=== PATIENT | female | born 1975 | race Caucasian/White ===

== ENCOUNTER 2017-05-25 19:31 | Emergency (ER) | payer OTHER ==
[~2017-05-25] VITALS: Ht 162.6 cm; Wt 57.6 kg
[~2017-05-25 19:31] MED LIST: ACETAMINOPHEN-1 EAC1 PO; AEROECLIPSE II1 EACH MC; ALLEGRA ALLERG180 MG PO; AMBIEN 5 MG TABL5 M1; AUGMENTIN 875875 MG PO; BIOTIN2500 MCG PO; CARISOPRODOL 3350 MG PO; CELEXA20 MG; CIPRO250 M1 PO; CIPRO500 MG PO; CLONAZEPAM; CLONAZEPAM 1 MG1 M1 PO; COLACE100 MG PO; CRANBERRY PLUS1 EAC1 PO; DUONEB 2.5-0.5 M3 ML INH; EFFEXOR 5050 MG/1 T1 PO; EFFEXOR XR150 MG; EFFEXOR XR150 MG PO; EFFEXOR75 MG PO; FISH OIL + VIT1 EACH; FLAGYL500 M1 PO; FLEXERIL PO; GABAPENTIN 100100 MG PO; HOME MEDICATION PO; HYDROCODONE-AP1 EAC6 PO; IBUPROFEN 800800 M1 PO; KLONOPIN PO; LEVSIN0.125 MG PO; LIDODERM 5%1 PATC1 TOP; LORTAB 7.5/5001 TA1 PO; MACROBID 100 M100 M1 PO; MEDROL DOSPAK21 TAB PO; MEDROLDOSEPACK PO; NABUMETONE 750750 M1 PO; NAPROSYN500 MG PO; NEURONTIN 300300 M1 PO; NICOTINE TRANSD14 M1 TRANSDERM; NORCO 5-325 TA1 EACH PO; ONDANSETRON ODT4 MG SUBLING; PERCOCET 10-321 EACH PO; PERCOCET 5-3251 EACH PO; PERCOCET 7.5-31 EACH PO; PERCOCET PO; PHENAZOPYRIDIN200 M2 PO; PROBIOTIC1 EAC1 PO; PROTONIX40 M1 PO; PYRIDIUM200 MG PO; ROBAXIN 750 MG750 M1 PO; ROBAXIN500 MG PO; SENOKOT-S1 TA1 PO; SEROPHENE50 MG; SEROQUEL 25 MG25 M1; SEROQUEL 50 MG50 MG PO; SUPER B COMPLEX; SYMBICORT160 MCG/4.; SYMBICORT160 MCG/4. INH; ULTRAM 50MG TAB50 MG PO; VENTOLIN HFA 1818 GM; VENTOLIN HFA 1818 GM INH; ZOFRAN ODT4 MG SUBLING; ZOLOFT100 MG; ZPAK PO
[2017-05-25] MEDS ORDERED: NEURONTIN 300300 M1 PO (19:38)
[2017-05-25] MEDS ORDERED: EFFEXOR XR75 MG (19:38)
[2017-05-25 20:45] VITALS: BP 118/72
== END 2017-05-25 20:45 | disposition home or self-care (01) ==
LOC: M.ERS 19:31
DX: S06.0X9A Concussion with loss of consciousness of unspecified duration, initial encounter (principal); J45.909 Unspecified asthma, uncomplicated; F41.9 Anxiety disorder, unspecified; M86.9 Osteomyelitis, unspecified; Z90.49 Acquired absence of other specified parts of digestive tract; Z98.890 Other specified postprocedural states; Z88.2 Allergy status to sulfonamides; Z91.040 Latex allergy status; Z88.0 Allergy status to penicillin; Z88.8 Allergy status to other drugs, medicaments and biological substances; W01.0XXA Fall on same level from slipping, tripping and stumbling without subsequent striking against object, initial encounter; Y93.89 Activity, other specified; Y92.89 Other specified places as the place of occurrence of the external cause; Y99.8 Other external cause status

== ENCOUNTER 2017-07-29 23:18 | Inpatient (IN) | payer OTHER ==
[~2017-07-29] VITALS: Ht 162.6 cm; Wt 60.7 kg
--- NOTE | ~2017-07-29 | H ---
[address] [address] HISTORY AND PHYSICAL Name: MENG COLEMAN Room: [address]#: [id number] Admission: 07/30/17 Attend Phys: Ashley Uriostegui Discharge: 07/30/17 Date of : 79 Report #: [id number] THIS REPORT FOR: //name// Patient was here less than 24 hour please refer to the final summation note. Patient left Against Medical Advice. By: 1428Medical Records Staff CAITY /JESUS
[~2017-07-29 23:18] MED LIST changes: +EFFEXOR XR75 MG
[2017-07-29 23:19] VITALS: BP 109/64
[2017-07-29 23:47] LABS: URINE BILIRUBIN NEGATIVE (Negative); URINE BLOOD 2+ (Negative); URINE CLARITY CLEAR; URINE COLOR YELLOW; URINE GLUCOSE-RANDOM NEGATIVE (Negative); URINE KETONES NEGATIVE (Negative); URINE LEUKOCYTES-REFLEX 1+ (Negative); URINE NITRITE-REFLEX NEGATIVE (Negative); URINE PROTEIN NEGATIVE (Negative); URINE UROBILINOGEN 0.2 E.U./dl (0.2-1.0)
[2017-07-30 00:09] LABS: BE 4.1 mmol/L (-2 to +3); HCO3 28.3 mmol/L (22.0-26.0); PCO2 41.1 mmHg (35.0-45.0); PO2 186.4 mmHg (75.0-100.0); pH 7.456 (7.340-7.450)
[2017-07-30 00:11] LABS: ABSOLUTE EOSINOPHILS 0.2 thou/uL (0.0-0.7); ABSOLUTE LYMPHOCYTES 1.4 thou/uL (0.8-5.3); ABSOLUTE MONOCYTES 0.4 thou/uL (0.0-1.2); ABSOLUTE NEUTROPHILS 1.9 thou/uL (1.6-8.1); HEMATOCRIT 32.5 % (37.0-47.0); LYMPHOCYTES 36.8 %; MCH 34.6 pg (26.0-34.0); MONOCYTES 9.8 %; NUCLEATED RBCS 0 /100WBC; PLATELET COUNT* 193 thou/uL (150-400); POLYS 48.4 %; RBC 3.18 mil/uL (4.20-5.00); WBC 3.9 thou/uL (4.0-11.0)
[2017-07-30 00:14] LABS: ANION GAP 5 mmol/L (7-16); BUN 8 mg/dL (7-18); CALCIUM 8.5 mg/dL (8.5-10.1); CHLORIDE 106 mmol/L (98-107); CO2 31 mmol/L (21-32); CREATININE 0.9 mg/dL (0.6-1.3); GLUCOSE 127 mg/dL (70-99); POTASSIUM 3.3 mmol/L (3.5-5.1); SODIUM 142 mmol/L (136-145)
[2017-07-30 00:15] LABS: PROTIME 10.1 Seconds (9.20-11.50)
[2017-07-30 00:18] LABS: ACETAMINOPHEN < 2 ug/mL (10-30); SALICYLATE < 2.8 mg/dL (2.8-20.0)
[2017-07-30 00:19] LABS: ALCOHOL < 10 mg/dL (<10)
[2017-07-30 00:20] LABS: ALBUMIN 2.9 g/dL (3.4-5.0); ALKALINE PHOSPHATASE 91 U/L (46-116); SGOT 46 U/L (15-37); SGPT 172 U/L (30-65); TOTAL BILIRUBIN 0.3 mg/dL (<0.1-1.0); TROPONIN-I LEVEL <0.06 ng/mL (<0.06)
[2017-07-30 00:27] LABS: CASTS None Seen /LPF (None Seen); SQUAMOUS >10 Many /LPF (0-3)
[2017-07-30 00:28] LABS: URINE WBC-REFLEX 0-5 Rare /HPF (0-5)
[2017-07-30 00:29] LABS: AMP/METHAMP Negative (Negative); BARBITURATES Negative (Negative); BENZODIAZEPINES POSITIVE (Negative); COCAINE Negative (Negative); CRYSTALS None Seen /LPF (None Seen); METHADONE Negative (Negative); OPIATES POSITIVE (Negative); PCP Negative (Negative); THC Negative (Negative); URINE RBC 0-2 Rare /HPF (0-2)
[2017-07-30 01:20] VITALS: BP 123/84
[2017-07-30 02:00] VITALS: BP 107/65
[2017-07-30 04:00] VITALS: BP 113/70; BP 115/69
--- NOTE | 2017-07-30 09:16 | EKG ---
[place] [address] ELECTROCARDIOGRAM REPORT Name: MENG COLEMAN Room: [address] IN [facility]#: [id number] Admission: 07/30/17 Attend Phys: Ashley Uriostegui Discharge: 07/30/17 Date of : 79 Report #: [id number] THIS REPORT FOR: //name// [facility] ED Test Date: 2017-07-29 Test Time: 23:28:55 Pat Name: MENG COLEMAN Department: Room: Gender: Quality Assurance Supervisor Body: SANTO : 1975 Requested By: Nara Lira Order Number: [id number] MD: Abhijeet Acosta Measurements Intervals [place] Rate: 114 P: 77 MS: 138 QRS: 19 QRSD: 98 T: 17 QT: 363 QTc: 501 Interpretive Statements Sinus tachycardia Borderline prolonged QT interval Compared to ECG 01/21/2017 15:25:37 Sinus rhythm no longer present Electronically Signed On 07-30-2017 9:16:07 CDT by Abhijeet Acosta [email or web address] <ELECTRONICALLY SIGNED> By: Abhijeet Acosta MD, [facility] 07/30/17 0916 [id number] Abhijeet Acosta MD, [facility] /EPI
--- NOTE | 2017-07-30 09:17 | EKG ---
[place] [address] ELECTROCARDIOGRAM REPORT Name: VIRGINIAMENG ALVA Room: [address] IN [facility]#: [id number] Admission: 07/30/17 Attend Phys: Ashley Uriostegui Discharge: 07/30/17 Date of : 79 Report #: [id number] THIS REPORT FOR: //name// [facility] ED Test Date: 2017-07-30 Test Time: 01:04:12 Pat Name: MENG COLEMAN Department: Room: Gender: Door To Door Salesman: SANTO : 1975 Requested By: Nara Lira Order Number: [id number] MD: Abhijeet Acosta Measurements Intervals [place] Rate: 105 P: 38 CA: 127 QRS: 12 QRSD: 99 T: 25 QT: 369 QTc: 488 Interpretive Statements Sinus tachycardia Abnormal inferior Q waves Compared to ECG 01/21/2017 15:25:37 Inferior Q waves now present Sinus rhythm no longer present Electronically Signed On 07-30-2017 9:16:52 CDT by Abhijeet Acosta [email or web address] <ELECTRONICALLY SIGNED> By: Abhijeet Acosta MD, FACC 07/30/17 [id number] [id number] Abhijeet Acosta MD, [facility] /EPI
== END 2017-07-30 07:00 | disposition left against medical advice (07) | DRG 917 ==
LOC: M.ERS 23:18 → M.ICU 07-30 01:02 → M.TBA-ER 07-30 01:02 → M.ICU 07-30 01:28
PROVIDERS: Emergency Medicine; ADMIT Internal Medicine
DX: T43.591A Poisoning by other antipsychotics and neuroleptics, accidental (unintentional), initial encounter (principal); G92 Toxic encephalopathy; T43.011A Poisoning by tricyclic antidepressants, accidental (unintentional), initial encounter; F41.9 Anxiety disorder, unspecified; J45.909 Unspecified asthma, uncomplicated; Z90.49 Acquired absence of other specified parts of digestive tract; Z91.040 Latex allergy status; Z88.0 Allergy status to penicillin; Z88.2 Allergy status to sulfonamides; Z91.048 Other nonmedicinal substance allergy status; Y92.018 Other place in single-family (private) house as the place of occurrence of the external cause

== ENCOUNTER 2017-08-04 22:01 | Emergency (ER) | payer OTHER ==
[~2017-08-04] VITALS: Ht 162.6 cm; Wt 58.5 kg
[2017-08-04] MEDS ORDERED: MACROBID (22:16)
[2017-08-04] MEDS ORDERED: PYRIDIUM (22:16)
[2017-08-04 22:20] LABS: URINE CLARITY CLEAR; URINE COLOR ORANGE
[2017-08-04 22:25] LABS: SSA (PROTEIN CONFIRMATORY) NEGATIVE (Negative); URINE PROTEIN ND (Negative); URINE SPECIFIC GRAVITY ND (1.005-1.030)
[2017-08-04 22:26] LABS: ACETEST (KETONE CONFIRMATORY) Negative (Negative); ICTOTEST (BILI CONFIRMATORY) Negative (Negative); URINE BILIRUBIN ND (Negative); URINE GLUCOSE-RANDOM ND (Negative); URINE KETONES NC (Negative); URINE REDUCING SUBSTANCE NEGATIVE (Negative)
[2017-08-04 22:27] LABS: URINE BLOOD ND (Negative); URINE LEUKOCYTES-REFLEX ND (Negative); URINE NITRITE-REFLEX ND (Negative); URINE UROBILINOGEN ND E.U./dl (0.2-1.0)
[2017-08-04 22:30] LABS: BACTERIA-REFLEX >30 Many /HPF (None Seen); CASTS None Seen /LPF (None Seen); CRYSTALS None Seen /LPF (None Seen); MUCUS 4-6 Moderate strn/LPF (None Seen); SQUAMOUS 4-10 Moderate /LPF (0-3); TRANSITIONAL EPITHEL CELL 0-3 Few /LPF (None Seen); URINE RBC 3-10 Few /HPF (0-2); URINE WBC-REFLEX 6-15 Few /HPF (0-5); WBC CLUMPS Few (None Seen)
[2017-08-04 22:45] VITALS: BP 117/80
== END 2017-08-04 22:45 | disposition home or self-care (01) ==
LOC: M.ERS 22:01
PROVIDERS: Nurse Practitioner Family
DX: G89.29 Other chronic pain (principal); M54.5 Low back pain; F41.9 Anxiety disorder, unspecified; J45.909 Unspecified asthma, uncomplicated; Z88.2 Allergy status to sulfonamides; Z90.89 Acquired absence of other organs; Z88.8 Allergy status to other drugs, medicaments and biological substances; Z91.040 Latex allergy status; Z88.0 Allergy status to penicillin